=== PATIENT | female | born 1975 | race Caucasian/White ===

== ENCOUNTER → 2018-06-01 | Outpatient (CLI) | payer OTHER ==
[2018-06-01 15:00] LABS: BASOPHILS ABSOLUTE AUTO 0.02 K/mm3 (0.00-0.23); BASOPHILS PERCENT AUTO 0 % (0-2); EOSINOPHILS ABSOLUTE AUTO 0.07 K/mm3 (0.00-0.68); EOSINOPHILS PERCENT AUTO 1 % (0-6); Hematocrit 39.5 % (33.0-51.0); Hemoglobin 13.1 g/dL (11.5-16.0); IMMATURE GRAN ABSOLUTE AUTO 0.01 K/mm3 (0.00-0.10); IMMATURE GRAN PERCENT AUTO 0 % (0-1); LYMPHOCYTES ABSOLUTE AUTO 0.86 K/mm3 (0.84-5.20); LYMPHOCYTES PERCENT AUTO 16 % (21-46); MONOCYTES ABSOLUTE AUTO 0.27 K/mm3 (0.16-1.47); MONOCYTES PERCENT AUTO 5 % (4-13); Mean Corpuscular HGB 30.5 pg (26.0-34.0); Mean Corpuscular HGB Conc 33.2 g/dL (31.5-36.5); Mean Corpuscular Volume 92 fL (80-100); Mean Platelet Volume 11.4 fL (9.1-12.4); NEUTROPHILS ABSOLUTE AUTO 4.04 K/mm3 (1.96-9.15); NEUTROPHILS PERCENT AUTO 77 % (41-73); Platelet Count 187 K/mm3 (150-400); RDW Coefficient Variation 12.7 % (11.7-14.2); RDW Standard Deviation 42.6 fL (35.1-46.3); White Blood Cell Count 5.27 K/mm3 (4.00-11.30)
[2018-06-01 15:24] LABS: Alanine Aminotransfer (ALT/SGP 55 U/L (12-78); Albumin, Blood 3.9 g/dL (3.4-5.0); Albumin/Globulin Ratio 1.1 (0.8-1.8); Alk Phos 77 U/L (40-126); Anion Gap 10 mmol/L (6-16); Aspartate Aminotrans (AST/SGOT 30 U/L (12-37); Bilirubin, Total 0.5 mg/dL (0.1-1.0); Blood Urea Nitrogen 12 mg/dL (8-24); Bun/Creatinine Ratio 12.5 (12.0-20.0); CO2, Blood 30 mmol/L (21-32); Calcium, Blood 8.3 mg/dL (8.5-10.1); Chloride, Blood 101 mmol/L (98-108); Creatinine, Blood 0.96 mg/dL (0.40-1.00); Globulin, Blood 3.6 g/dL (2.2-4.0); Glomerular Filtration Rate >60 (60-); Glucose, Blood 90 mg/dL (70-99); Potassium, Blood 3.4 mmol/L (3.5-5.5); Sodium, Blood 141 mmol/L (136-145); Thyroid Stimulating Hormone 1.409 uIU/mL (0.360-4.800); Total Protein, Blood 7.5 g/dL (6.4-8.2)
== END | disposition home or self-care (01) ==
LOC: LAB EV 14:51 → LAB SHORT 14:51
PROVIDERS: Physician Assistant Medical
DX: R53.83 Other fatigue (principal)
CPT/HCPCS: 80053; 84443; 85025

== ENCOUNTER 2023-12-13 12:42 | Emergency (ER) | payer OTHER ==
[~2023-12-13] VITALS: Ht 165.1 cm; Wt 74.8 kg
[2023-12-13] MEDS ORDERED: Acetaminophen 325 MG TABLET PO ONE (12:55)
[2023-12-13] MEDS ORDERED: FentaNYL Citrate 50 MCG/ML 2 ML Injection IV ONE (15:10)
[2023-12-13] MEDS ORDERED: FentaNYL Citrate 50 MCG/ML 2 ML Injection IV PRN (15:35)
[2023-12-13] MEDS ORDERED: Ketorolac Tromethamine 15mg Vial IV ONE (15:55)
[2023-12-13] MEDS ORDERED: IBUP600 PO (16:46)
[2023-12-13] MEDS ORDERED: Roxicodone5 MG PO (16:46)
[2023-12-13 17:09] VITALS: BP 160/93
== END 2023-12-13 17:11 | disposition home or self-care (01) ==
LOC: ER 12:42
DX: S82.851A Displaced trimalleolar fracture of right lower leg, initial encounter for closed fracture (principal); X50.1XXA Overexertion from prolonged static or awkward postures, initial encounter; Y93.K9 Activity, other involving animal care; S93.401A Sprain of unspecified ligament of right ankle, initial encounter
CPT/HCPCS: 27818; 73600; 73610; 73700; 96374-59; 99284-25; J1885; J3010

== ENCOUNTER 2023-12-27 12:08 | Day surgery (SDC) | payer OTHER ==
[2023-12-27] VITALS (12 sets, daily range): BP systolic 114–144; BP diastolic 78–100
[~2023-12-27] VITALS: Ht 162.6 cm; Wt 77.6 kg
[~2023-12-27 12:08] MED LIST: IBUP600 PO; Roxicodone5 MG PO
[2023-12-27] MEDS ORDERED: CeFAZolin Sodium 2,000 MG in NS 100 ML IV SCH (12:20)
[2023-12-27] MEDS ORDERED: Lactated Ringer's 1,000 ML IV SCH (12:20)
[2023-12-27] MEDS ORDERED: CeFAZolin Sodium 2,000 MG VIAL ONE (12:33)
--- NOTE | 2023-12-27 12:40 | NUR ---
Ambulatory in Day SurgeryPre-Op teaching done. Pt verbalizes understanding. History, Chart, Medications and Allergies reviewed before start of procedure.Patient confirms NPO status and agrees with scheduled surgery. Patient States Post-Procedure ride home has been arranged. Patient reports completing Chlorhexadine shower X2 prior to admission to hospital.
[2023-12-27] MEDS ORDERED: ACET500 (12:48)
[2023-12-27] MEDS ORDERED: OMEP20ER (12:49)
[2023-12-27] MEDS ORDERED: ZINC15 (12:49)
[2023-12-27] MEDS ORDERED: FentaNYL Citrate 50 MCG/ML 2 ML Injection ONE ×3 (13:01→15:26)
[2023-12-27] MEDS ORDERED: Midazolam HCl 1MG / ML 2ML Vial ONE (13:01)
[2023-12-27] MEDS ORDERED: Bupivacaine 0.5% HCl 5 MG/ML 30MLVIAL ONE (13:02)
[2023-12-27] MEDS ORDERED: EpiNEPhrine 1 MG/1 ML 1ML Vial ONE (13:03)
--- NOTE | 2023-12-27 13:06 | NUR ---
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
[2023-12-27] MEDS ORDERED: propofoL 20 ML IV ONE (13:14)
--- NOTE | 2023-12-27 14:02 | NUR ---
12/27/23 1402 Sara Deleon REDDNESS NOTED ON PTS RIGHT HEEL. DR. MACK NOTIFIED
[2023-12-27] MEDS ORDERED: Dexamethasone Sod Phos 10 MG/ML 1ML VIAL ONE (14:32)
[2023-12-27] MEDS ORDERED: Ondansetron HCl 2 MG / ML 2ML Vial ONE (14:32)
[2023-12-27] MEDS ORDERED: Ketorolac Tromethamine 30mg Vial ONE (14:34)
[2023-12-27] MEDS ORDERED: Labetalol HCL 5 MG/ML 4ML Injection (Single Dose) ONE (14:52)
[2023-12-27] MEDS ORDERED: Sugammadex Sodium 200 MG/2ML SDV (100 MG/ML) ONE (14:53)
[2023-12-27] MEDS ORDERED: OxyCODONE HCL 5 MG TAB PO PRN (15:50)
--- NOTE | 2023-12-27 16:15 | NUR ---
Discharge instructions reviewed with patient. Patient verbalizes understanding. Copy given to patient to take home. SISTER AT BS, PLANS TO GIVE PT RIDE HOME. PT STATES PN LEVEL AT 03/10. VSS STABLE.
== END 2023-12-27 23:49 | disposition home or self-care (01) ==
LOC: ORSCMMR 12:08 → ORD 15:45 → ORSCMMR 15:45
PROVIDERS: Orthopaedic Surgery
PROC: 0QSJ04Z Reposition Right Fibula with Internal Fixation Device, Open Approach (ICD-10-PCS; principal; 2023-12-27 13:00)
PROC: 0QSG04Z Reposition Right Tibia with Internal Fixation Device, Open Approach (ICD-10-PCS; principal; 2023-12-27 13:00)
DX: S82.851A Displaced trimalleolar fracture of right lower leg, initial encounter for closed fracture (principal); K21.9 Gastro-esophageal reflux disease without esophagitis; W18.30XA Fall on same level, unspecified, initial encounter
CPT/HCPCS: C1713; C1769; J0171; J0690; J1100; J1885; J2250; J2405; J2704; J3010; J7120

== ENCOUNTER 2025-01-16 14:15 | Day surgery (SDC) | payer OTHER ==
[~2025-01-16] VITALS: Ht 167.6 cm; Wt 75.6 kg
[2025-01-16] VITALS (11 sets, daily range): BP systolic 106–142; BP diastolic 61–100
[~2025-01-16 14:15] MED LIST changes: +ACET500; +ASCORBIC ACID500 MG PO; +B-12500 MC2 PO; +FAMO40; +FERSU300 PO; +OMEP20ER; +VITAMIN D31000 UNI1; +ZINC15
--- NOTE | 2025-01-16 17:08 | NUR ---
01/16/25 1708 Elham Sesay CONFIRMED AND REVIEWED H&P, MEDCICATIONS, ALLERGIES, MEDICAL HISTORY, RESPIRATORY HISTORY, VITAL SIGNS, 3-LEAD EKG, CONSENTS, AND PHYSICIAN ORDERS. PATIENT CONFIRMS NPO STATUS AND AGREES WITH SCHEDULED PROCEDURE. MONITOR INTACT WITH CONTINUOUS PULSE OXIMETRY, CAPNOGRAPHY, 3-LEAD EKG, INTERMITTENT BP. SUPPLEMENTAL O2 TO BE TITRATED THROUGHOUT PROCEDURE TO MAINTAIN O2 SATURATION ABOVE 90%. PATIENT DETERMINED TO BE ASA APPROPRIATE FOR PROPOFOL SEDATION PRIOR TO START OF PROCEDURE BY DR. TRAN.
--- NOTE | 2025-01-16 18:00 | NUR ---
Discharge instructions reviewed with patient. Patient verbalizes understanding. Copy given to patient to take home. Discharged via wheelchair to private car for ride home.
== END 2025-01-16 18:00 | disposition home or self-care (01) ==
LOC: ORSCMMR 14:15 → ORD 15:45 → ORSCMMR 15:45
PROVIDERS: Surgery
PROC: 0DBP8ZX Excision of Rectum, Via Natural or Artificial Opening Endoscopic, Diagnostic (ICD-10-PCS; principal; 2025-01-16 15:45)
DX: Z12.11 Encounter for screening for malignant neoplasm of colon (principal); K62.1 Rectal polyp; K64.8 Other hemorrhoids; D64.9 Anemia, unspecified; K21.9 Gastro-esophageal reflux disease without esophagitis; F32.A Depression, unspecified; Z79.899 Other long term (current) drug therapy
CPT/HCPCS: 88305; J2704; J7120